=== PATIENT | female | born 1995 | race Caucasian/White ===

== ENCOUNTER 2023-11-13 15:05 | Emergency (ER) | payer SELFPAY ==
[~2023-11-13] VITALS: Ht 157.5 cm; Wt 61.0 kg
[2023-11-13 15:20] VITALS: O2SAT 98
[2023-11-13 18:36] VITALS: TEMP 98.9
[2023-11-13] MEDS: ACETAMINOPHEN 500MG TABLET PO ONE (18:36)
[2023-11-13 20:36] LABS: CLARITY URINE CLOUDY (CLEAR); COLOR URINE YELLOW (YELLOW); GLUCOSE URINE NEGATIVE (NEGATIVE); KETONES URINE NEGATIVE (NEGATIVE); LEUKOCYTE ESTERASE URINE 3+ (NEGATIVE); NITRITE URINE NEGATIVE (NEGATIVE); OCCULT BLOOD URINE 1+ (NEGATIVE); PH URINE 6.5 (4.5-8.0); PROTEIN URINE NEGATIVE (NEGATIVE); SPECIFIC GRAVITY URINE 1.018 (1.005-1.030); UROBILINOGEN URINE 0.2 E.U./dL (0.2-1.0)
[2023-11-13 21:01] LABS: WBC URINE 15-25 /hpf (0-2)
[2023-11-13 21:02] LABS: BACTERIA URINE 3+; SQUAMOUS EPITHELIAL CELL URINE 1+ /lpf (RARE/1+); TRICHOMONAS URINE FEW
[2023-11-13] MEDS ORDERED: CEPH250C2 MT (21:10)
[2023-11-13] MEDS ORDERED: KETOROLAC 60MG/2ML VIAL IM ONE (21:15)
[2023-11-13] MEDS: KETOROLAC 30MG/ML VIAL IM NR (22:03)
[2023-11-13] MEDS: CEFTRIAXONE SODIUM 1G VIAL IM ONE (22:12)
[2023-11-13] MEDS: LIDOCAINE HCL 1% 20ML VIAL (Pyxis) INJ INFIL ONE (22:12)
[2023-11-13 22:23] VITALS: BP 128/73; PULSE 76; RESP 14
== END 2023-11-13 22:25 | disposition home or self-care (01) ==
LOC: ER 15:05
DX: N39.0 Urinary tract infection, site not specified (principal); Z90.49 Acquired absence of other specified parts of digestive tract; I95.9 Hypotension, unspecified
CPT/HCPCS: 81003; 81025; 87086; 72100; 96372; 99284; J0696; J1885; J3490; Z7610 ×2